=== PATIENT | male | born 1980 | race Caucasian/White ===

== ENCOUNTER 2017-10-04 04:42 | Emergency (ER) | payer SELFPAY ==
[~2017-10-04] VITALS: Ht 175.3 cm; Wt 95.2 kg
[2017-10-04] MEDS ORDERED: IBUP800 PO (04:56)
[2017-10-04] MEDS ORDERED: ACET500 PO (04:57)
[2017-10-04] MEDS ORDERED: GABA600 PO (04:57)
[2017-10-04] MEDS ORDERED: HYDR1TAB94 PO (05:27)
== END 2017-10-04 05:32 | disposition home or self-care (01) ==
LOC: ER 04:42
DX: M25.531 Pain in right wrist (principal); M25.532 Pain in left wrist; Z88.0 Allergy status to penicillin; Z88.5 Allergy status to narcotic agent; Z79.899 Other long term (current) drug therapy
CPT/HCPCS: 99282